=== PATIENT | male | born 1985 | race Caucasian/White ===

== ENCOUNTER 2020-09-11 16:16 | Emergency (ER) | payer OTHER ==
[~2020-09-11] VITALS: Ht 180.3 cm; Wt 99.4 kg
[2020-09-11] MEDS ORDERED: DOXYCYCLINE HY100 MG PO ×2 (17:19→20:31)
[2020-09-11] MEDS ORDERED: IBUPROFEN IB200 MG PO (17:19)
[2020-09-11] MEDS ORDERED: CLEOCIN HCL300 MG PO (17:19)
[2020-09-11] MEDS ORDERED: BACITRACIN ZINC 0.9GM TP ONE ×2 (17:33→18:15)
[2020-09-11 18:16] VITALS: BP 160/74
== END 2020-09-11 18:00 | disposition home or self-care (01) ==
LOC: FSED 16:40
DX: N48.21 Abscess of corpus cavernosum and penis (principal); L73.9 Follicular disorder, unspecified; F17.210 Nicotine dependence, cigarettes, uncomplicated
CPT/HCPCS: 99283